=== PATIENT | male | born 1950 | race Caucasian/White ===

== ENCOUNTER → 2023-03-12 11:19 | Outpatient (CLI) | payer MEDICARE, SELFPAY ==
--- NOTE | ~2023-03-12 | XR_ITS ---
Clinical Indication: Osteoarthritis PA and lateral views of the chest: Comparison: None Findings: The lungs are clear, without evidence of focal consolidation or pleural effusion. Possible COPD. Cardiomediastinal silhouette is within normal limits. Bones and soft tissues are unremarkable. Impression: Possible COPD. Clear lungs. Reviewed, dictated and finalized at location [facility] Impression: Possible COPD. Clear lungs.
== END ==
PROVIDERS: PCP Physician Assistant; Visit Provider Physician Assistant
DX: M19.90 Unspecified osteoarthritis, unspecified site (principal)
CPT/HCPCS: 71046

== ENCOUNTER 2023-06-12 12:43 | Outpatient (CLI) | payer MEDICARE, SELFPAY ==
--- NOTE | 2023-06-12 16:59 | WPDPFTINT ---
PFT Procedure Performed PFT Procedure Performed Plethysmography (Lung Vol) Diffusing Cap (DLCO) Flow Vol Loop Spirometry w/o Bronchodil PFT Interpretation This is a pulmonary function test with spirometry, plethysmography and diffusing capacity. The test was performed and results interpreted in accordance with the 2019 and 2005 ATS/ERS Task Force guidelines respectively using the Global Lung Function Initiative-2012 reference equations. Patient demonstrated good effort and cooperation. Reproducibility criteria were met. The quality of the spirometry maneuver was Grade A. Findings: Spirometry: There is decreased maximal expiratory airflow at all lung volumes with concave expiratory flow tracing. The contour the inspiratory flow tracing is normal. The FVC is 5.03 L, 111% predicted. The FEV1 is 2.70 L, 80% predicted. The FEV1: FVC ratio is 54%. Plethysmography: The total lung capacity is 8.56 L, 113% predicted. The functional residual capacity is 5.35 L, 131% predicted. The residual volume is 3.53 L, 132% predicted. The residual volume: Total lung capacity ratio is 41%. Diffusing capacity: The diffusing capacity unadjusted for hemoglobin and carboxyhemoglobin is 26.7, 100% predicted. The diffusing capacity adjusted for alveolar volume is 3.98, 108% predicted. Impression: There is a mild obstructive abnormality with a normal FEV1. The lung volumes are normal. The diffusing capacity is normal. There are no prior studies for comparison
== END 2023-06-12 12:44 | disposition home or self-care (01) ==
PROVIDERS: PCP Physician Assistant; Visit Provider Physician Assistant
DX: R06.01 Orthopnea (principal); R94.2 Abnormal results of pulmonary function studies
CPT/HCPCS: 94375; 94726; 94729